=== PATIENT | female | born 1950 | race Caucasian/White ===

== ENCOUNTER 2017-10-17 12:20 | Inpatient (IN) | payer BC, MEDICARE ==
[~2017-10-17] VITALS: Ht 157.5 cm; Wt 68.0 kg
--- NOTE | 2017-10-17 12:38 | ED Neurological Problem ---
General Stated Complaint: POSS STROKE Source: patient, EMS Exam Limitations: no limitations History of Present Illness Date Seen by Provider: Oct 17, 2017 Time Seen by Provider: 12:16 Initial Comments Patient presents to ER by EMS with chief complaint that she had a syncopal episode in music class today and woke up confused so EMS was notified. Within got there she was responsive although she was confused word phrases she had the little racial droop and normal motor and sensory 4 extremities. Patient has a history of brain aneurysm 10 or 11 years ago. Patient says she remembers sitting in music class and she thought she fell asleep and woke up with a standing over her but she was still in her chair and she thought it was time to go home however informed her it was just lunch time. Patient does not have diabetes history of seizures or strokes. No history of heart attacks. No recent surgeries or procedures. No rectal bleeding. She is not on any blood thinners or aspirin. She does take some medications for blood pressure and was recently changed and she was also recently started on some Xanax for anxiety. Last known well time was 1140 today. Since the patient states she had her aneurysm coiled at [facility] around 2007. EMS reports blood sugar is 147. Friend who is present with the patient at the time of her last well-known time at work shows up and the patient was acting confused and was time to go home but never fell. They put her in a chair and she's Snapping her head backwards like she was going to fall asleep so he called 911. Patient now endorses having used a 1 mg Xanax this morning and she has not had anything to eat today. Allergies and Home Medications Allergies Coded Allergies: NKANo Known Allergies (Verified Allergy, Unknown, 10/17/17) Home Medications Alprazolam 0.5 Mg Tablet, 0.5 MG PO DAILY, (Reported) Hydrocodone/Acetaminophen 1 Each Tablet, 1 TAB PO Q6H PRN for PAIN-MODERATE, ( Reported) Losartan/Hydrochlorothiazide 1 Each Tablet, 1 TAB PO DAILY, (Reported) Patient Home Medication List Home Medication List Reviewed: Yes Constitutional: No chills, No diaphoresis Eyes: Denies Blindness, Denies Blurred Vision Ears, Nose, Mouth, Throat: denies ear pain, denies ear discharge Respiratory: No cough, No short of breath Cardiovascular: No chest pain, No edema Gastrointestinal: No abdominal pain, No constipation, No diarrhea, No nausea Genitourinary: No discharge, No dysuria Musculoskeletal: No back pain, No joint pain, other (right leg hurts) Skin: No pruritus, No rash Psychiatric/Neurological: Cognitive Dysfunction (slowed mentation), Denies Headache, Denies Numbness Past [id number] Hx Patient Social History Alcohol Use: Denies Use Recreational Drug Use: No Smoking Status: Current Everyday Smoker Type Used: Cigarettes Physical Exam Vital Signs Vital Signs - First Documented 10/17/17 12:20 Temp 98.0 Pulse 84 Resp 18 B/P (MAP) 135/82 (99) Pulse Ox 98 O2 Delivery Room Air Capillary Refill : General Appearance: WD/WN, no apparent distress (somnolent but alert and answers questions.) HEENT: PERRL/EOMI, normal ENT inspection, TMs normal, pharynx normal Neck: non-tender, supple, normal inspection Respiratory: chest non-tender, lungs clear, normal breath sounds, no respiratory distress, no accessory muscle use Cardiovascular: normal peripheral pulses, regular rate, rhythm, no edema Peripheral Pulses: 2+ Dorsalis Pedis (R), 2+ Left Dors-Pedis (L), 2+ Radial Pulses (R), 2+ Radial Pulses (L) Gastrointestinal: normal bowel sounds, non tender, soft Back: normal inspection, no vertebral tenderness Extremities: normal range of motion, non-tender, normal inspection, no pedal edema, no calf tenderness, normal capillary refill Neurologic/Psychiatric: alert, normal mood/affect, oriented x 3, other ( cranial nerves are normal except for mild left facial droop but her motor is intact she is able to move all of her muscles of facial movement.) Crainal Nerves: normal hearing, normal speech, PERRL Coordination/Gait: normal finger to nose Motor/Sensory: no sensory deficit, pronator drift (R) (upper extremity mild) Skin: normal color, warm/dry Lymphatic: no adenopathy Stroke Onset of Symptoms Date of Onset of Symptoms: Oct 17, 2017 Time of Symptom Onset: 11:40 Onset of Symptoms: Yes Symptoms onset unknown: No NIH Stroke Scale Assessment Level of Consciousness: 0=Alert (0), Level of Consciousness-Questions: 0= Answers both month/age (0), LOC Commands: 0=Performs both tasks (0), Gaze: Normal (0), Visual Loja: 0=No visual loss (0), Facial Movement (Facial Paresis ): 1=Minor paralysis (1), Motor Function-Arms Right: 1=Drift (1), Motor Function -Arms Left: 0=No drift (0), Motor Function-Legs Right: 0=No drift (0), Motor Function-Legs Left: 0=No drift (0), Limb Ataxia: 0=Absent (0), Sensory: 0=Normal :no loss (0), Best Language: 0=No aphasia (0), Dysarthria: 0=Normal (0), Extinction & Inattention: 0=No abnormality (0), Total: 2 Stroke Thrombolytic Exclusion Age 18 or Over: Yes Acute intenal hemorrhage: No History of CVA: No Uncontrolled Coagulation Defec: No Intracranial Hemorrhage: No Severe Hypertension: No GI or Bleed: No Subarachnoid Hemorrhage: No Intracranial Neoplasm/Aneurysm: No (Coiled 2007) Oral Anticoagulants: No Surgery or Trauma: No Puncture of Non-Compressible V: No Recent CPR: No Diabetic Hemorrhagic Retinopat: No Organ Biopsy: No Recent Obstetric Delivery: No Glucose: No (147) Significant Hepatic Dysfunctio: No NIH Stoke Scale >22: No Bacterial Endocarditis: No Pericarditis: No Improving Symptoms: No Platelets: No TPA Contraindication: No Progress/Results/Core Measures Results/Orders Lab Results Laboratory Tests Test 10/17/17 12:44 10/17/17 13:00 Range/Units White Blood Count 9.6 4.3-11.0 10^3/uL Red Blood Count 4.10 L 4.35-5.85 10^6/uL Hemoglobin 12.4 11.5-16.0 G/DL Hematocrit 37 35-52 % Mean Corpuscular Volume 90 80-99 FL Mean Corpuscular Hemoglobin 30 25-34 PG Mean Corpuscular Hemoglobin Concent 34 32-36 G/DL Red Cell Distribution Width 16.3 H 10.0-14.5 % Platelet Count 393 130-400 10^3/uL Mean Platelet Volume 10.5 H 7.4-10.4 FL Neutrophils (%) (Auto) 50 42-75 % Lymphocytes (%) (Auto) 36 12-44 % Monocytes (%) (Auto) 8 0-12 % Eosinophils (%) (Auto) 6 0-10 % Basophils (%) (Auto) 0 0-10 % Neutrophils # (Auto) 4.8 1.8-7.8 X 10^3 Lymphocytes # (Auto) 3.4 1.0-4.0 X 10^3 Monocytes # (Auto) 0.8 0.0-1.0 X 10^3 Eosinophils # (Auto) 0.6 H 0.0-0.3 10^3/uL Basophils # (Auto) 0.0 0.0-0.1 10^3/uL Prothrombin Time 12.5 12.2-14.7 SEC INR Comment 0.9 0.8-1.4 Activated Partial Thromboplast Time 42 H 24-35 SEC D-Dimer 0.44 0.00-0.49 UG/ML Sodium Level 141 135-145 MMOL/L Potassium Level 3.7 3.6-5.0 MMOL/L Chloride Level 107 98-107 MMOL/L Carbon Dioxide Level 27 21-32 MMOL/L Anion Gap 7 5-14 MMOL/L Blood Urea Nitrogen 24 H 7-18 MG/DL Creatinine 0.75 0.60-1.30 MG/DL Estimat Glomerular Filtration Rate > 60 BUN/Creatinine Ratio 32 Glucose Level 102 70-105 MG/DL Calcium Level 8.9 8.5-10.1 MG/DL Total Bilirubin 0.1 0.1-1.0 MG/DL Aspartate Amino Transf (AST/SGOT) 17 5-34 U/L Alanine Aminotransferase (ALT/SGPT) 13 0-55 U/L Alkaline Phosphatase 92 40-136 U/L Troponin I < 0.30 <0.30 NG/ML Total Protein 6.4 6.4-8.2 GM/DL Albumin 3.8 3.2-4.5 GM/DL Urine Color YELLOW Urine Clarity CLEAR Urine pH 6 5-9 Urine Specific Spar[place] 1.015 L 1.016-1.022 Urine Protein NEGATIVE NEGATIVE Urine Glucose (UA) NEGATIVE NEGATIVE Urine Ketones NEGATIVE NEGATIVE Urine Nitrite NEGATIVE NEGATIVE Urine Bilirubin NEGATIVE NEGATIVE Urine Urobilinogen NORMAL NORMAL MG/DL Urine Leukocyte Esterase NEGATIVE NEGATIVE Urine RBC (Auto) NEGATIVE NEGATIVE Urine RBC NONE /HPF Urine WBC NONE /HPF Urine Squamous Epithelial Cells 10-25 H /HPF Urine Crystals NONE /LPF Urine Bacteria TRACE /HPF Urine Casts NONE /LPF Urine Mucus SMALL H /LPF Urine Culture Indicated NO Urine Opiates Screen POSITIVE H NEGATIVE Urine Oxycodone Screen NEGATIVE NEGATIVE Urine Methadone Screen NEGATIVE NEGATIVE Urine Propoxyphene Screen NEGATIVE NEGATIVE Urine Barbiturates Screen NEGATIVE NEGATIVE Ur Tricyclic Antidepressants Screen NEGATIVE NEGATIVE Urine Phencyclidine Screen NEGATIVE NEGATIVE Urine Amphetamines Screen NEGATIVE NEGATIVE Urine Methamphetamines Screen NEGATIVE NEGATIVE Urine Benzodiazepines Screen POSITIVE H NEGATIVE Urine Cocaine Screen NEGATIVE NEGATIVE Urine Cannabinoids Screen NEGATIVE NEGATIVE My Orders Orders - RODRIGO,EARL J Cbc With Automated Diff (10/17/17 12:22) Protime With Inr (10/17/17 12:22) Partial Thromboplastin Time (10/17/17 12:22) Comprehensive Metabolic Panel (10/17/17 12:22) Fibrin Degradation Products (10/17/17 12:22) Troponin I (10/17/17:) Ua Culture If Indicated (10/17/17 12:22) Chest 1 View, Ap/Pa Only (10/17/17 12:22) Ekg Tracing (10/17/17 12:22) Accucheck Stat ONCE (10/17/17 12:22) Saline Lock/Iv-Start (10/17/17 12:22) Saline Lock/Iv-Start (10/17/17 12:22) Vital Signs Stroke Patient Q15M (10/17/17 12:22) Ct Head Wo-R/O Stroke (10/17/17 12:22) O2 (10/17/17 12:22) Monitor-Rhythm Ecg Trace Only (10/17/17 12:22) Dysphagia Screening Tool (10/17/17 12:22) Aspirin Tablet (Aspirin Tablet) (10/17/17 13:00) Drug Screen Stat (Urine) (10/17/17 12:55) Saline Lock/Iv-Start (10/17/17 12:58) Ns Iv 1000 Ml (Sodium Chloride 0.9%) (10/17/17 12:58) Medications Given in ED Current Medications Medications Dose Ordered Sig/Rosy Route Start Time Stop Time Status Last Admin Dose Admin Aspirin 325 mg ONCE ONCE PO 10/17/17 13:00 10/17/17 13:01 DC 10/17/17 13:12 325 MG Sodium Chloride 1,000 ml @ 0 mls/hr Q0M ONCE IV 10/17/17 12:58 10/17/17 12:59 DC 10/17/17 13:12 1,000 MLS/HR Vital Signs/I&O Vital Sign - Last 12Hours 10/17/17 12:20 Temp 98.0 Pulse 84 Resp 18 B/P (MAP) 135/82 (99) Pulse Ox 98 O2 Delivery Room Air Progress Note : Time: 12:52 Progress Note Patient is borderline somnolent although she easily arouses. Concern for maybe Xanax side effects. Her friend says that she came in to the music room confused taking it was 3:30 and acting like it was time to go home but it was only just about noon and then she took her back to the break room and sat her on the chair and says she just Having her head snapped back like she was falling asleep in the chair. Patient now endorses having taken a milligram of Xanax this morning without eating. Benzodiazepine side effect/intoxication seems to make more sense than her having a stroke but she'll still need stroke rule out she does have some risk factors. We'll start her on aspirin and atorvastatin get her set up to do some imaging and patient. ECG Initial ECG Impression Date: Oct 17, 2017 Initial ECG Impression Time: 12:43 Initial ECG Rate: 84 Initial ECG Rhythm: Normal Sinus Initial ECG Intervals: Normal Initial ECG Impression: Normal Initial ECG Comparisson: No Previous ECG Available Comment No T-wave elevation or depression. Diagnostic Imaging Diagonstic Imaging: CT Plain Films/CT/US/NM/MRI: head Comments VIA [facility]. [place], [place] NAME: JUAN LUIS GRANADO MED REC#: [id number] PT STATUS: REG ER : 1950 PHYSICIAN: EARL WALLACE MD ADMIT DATE: 10/17/17/ER Draft Date of Exam:10/17/17 CT HEAD WO-R/O STROKE Indication: Syncopal episode, confusion with left-sided facial droop. The patient has a history of intracranial aneurysm. Comparison: I have no previous for comparison. Findings: An embolic coil mass at the midline [place] is present. There is no intracranial hemorrhage. There is a very mild degree of ventriculomegaly of uncertain acuity. Overall cortical volume appeared unremarkable. The basilar cisterns are patent and there is no sulcal effacement. No loss of the cortical fletcher-white matter differentiations and there were no findings of focal or generalized cerebral edema. There were no findings suggestive of an elevation to the intracranial pressures. No abnormal extra-axial fluid collection. Impression: Post interventional changes with no hemorrhage. No focal or acute edema apparent. Borderline lateral ventriculomegaly of uncertain acuity. Otherwise negative. Dictated on workstation # [id number] Dict: 10/17/17 1235 Trans: 10/17/17 1240 CVB [id number] Interpreted by: JUANITA CHAVEZ Electronically signed by: Reviewed: Reviewed by Me Diagonstic Imaging: Xray Plain Films/CT/US/NM/MRI: chest Comments No acute cardiopulmonary processes noted. Reviewed: Reviewed by Me Consults Consults : Consults Notes Mehreen; [facility] Neurology: Discussed case imaging and clinical exam and an NIH score of 24 right arm drift and left facial droop. He agrees that she should not be TPA but he does recommend an inpatient workup, aspirin 81 mg and if we get a CTA and MRI today would be wonderful or tomorrow. Departure Communication (Admissions) Time/Spoke to Admitting Phy: 13:[address] Palacios; Discussed the case lab imaging and findings of benzos and opiates in the urine drug screen and possibility of this being a drug adverse effect versus stroke/TIA and syncopal workup. She still agrees with doing the MRI and CT angiography head and neck and she would like an echocardiogram and asked the histotechnician Dr. Mcdaniel to come on Board. Time/Spoke to Consulting Phy: 13:35 Communication/Consulting Dr. Mcdaniel; discussed case lab imaging findings and request for an echocardiogram for possible CT versus CVA versus TIA versus adverse drug event Impression Impression: Primary Impression: CVA (cerebrovascular accident) Qualified Codes: I63.9 - Cerebral infarction, unspecified Additional Impressions: Benzodiazepine causing adverse effect in therapeutic use Qualified Codes: T42.4X5A - Adverse effect of benzodiazepines, initial encounter Syncope Qualified Codes: R55 - Syncope and collapse Encephalopathy acute Adv eff opiates Disposition: ADMITTED INPATIENT Condition: Stable Admissions Decision to Admit Reason: Admit from ER (General) Decision to Admit/Date: Oct 17, 2017 Time/Decision to Admit Time: 13:13 Departure-Patient Inst. Referrals: MALA KABA MD (PCP/Family) Primary Care Physician Copy Copies To 1: MALA KABA MD, TITUS J Oct 17, 2017 12:38
--- NOTE | 2017-10-17 12:41 | Diagnostic Imaging Report ---
Indication: Syncopal episode, confusion with left-sided facial droop. The patient has a history of intracranial aneurysm. Comparison: I have no previous for comparison. Findings: An embolic coil mass at the midline [place] is present. There is no intracranial hemorrhage. There is a very mild degree of ventriculomegaly of uncertain acuity. Overall cortical volume appeared unremarkable. The basilar cisterns are patent and there is no sulcal effacement. No loss of the cortical fletcher-white matter differentiations and there were no findings of focal or generalized cerebral edema. There were no findings suggestive of an elevation to the intracranial pressures. No abnormal extra-axial fluid collection. Impression: Post interventional changes with no hemorrhage. No focal or acute edema apparent. Borderline lateral ventriculomegaly of uncertain acuity. Otherwise negative. Dictated by: Dictated on workstation # [id number]
[2017-10-17 12:51] LABS: BASOPHILS % (AUTO) 0 % (0-10); EOSINOPHILS # (AUTO) 0.6 10^3/uL (0.0-0.3); EOSINOPHILS % (AUTO) 6 % (0-10); HEMATOCRIT 37 % (35-52); HEMOGLOBIN 12.4 G/DL (11.5-16.0); LYMPHOCYTES # (AUTO) 3.4 X 10^3 (1.0-4.0); LYMPHOCYTES % (AUTO) 36 % (12-44); MEAN CORPUSCULAR HEMOGLOBIN 30 PG (25-34); MEAN CORPUSCULAR HGB CONC 34 G/DL (32-36); MEAN CORPUSCULAR VOLUME 90 FL (80-99); MEAN PLATELET VOLUME 10.5 FL (7.4-10.4); MONOCYTES # (AUTO) 0.8 X 10^3 (0.0-1.0); MONOCYTES % (AUTO) 8 % (0-12); NEUTROPHILS # (AUTO) 4.8 X 10^3 (1.8-7.8); NEUTROPHILS % (AUTO) 50 % (42-75); PLATELET COUNT 393 10^3/uL (130-400); RED CELL DISTRIBUTION WIDTH 16.3 % (10.0-14.5); WHITE BLOOD COUNT 9.6 10^3/uL (4.3-11.0)
[2017-10-17] MEDS ORDERED: NS IV 1000 ML 1,000 ML IV ONE (12:58)
[2017-10-17] MEDS ORDERED: ASPIRIN 325 MG (5 GR) TABLET PO ONE (13:00)
[2017-10-17 13:03] LABS: INR 0.9 (0.8-1.4); PROTHROMBIN TIME PATIENT 12.5 SEC (12.2-14.7)
[2017-10-17 13:06] LABS: FIBRIN DEGRADATION PRODUCTS 0.44 UG/ML (0.00-0.49)
[2017-10-17 13:11] LABS: ALANINE AMINOTRANSFERASE 13 U/L (0-55); ALBUMIN 3.8 GM/DL (3.2-4.5); ALKALINE PHOSPHATASE 92 U/L (40-136); BILIRUBIN,TOTAL 0.1 MG/DL (0.1-1.0); BUN/CREATININE RATIO 32; CALCIUM 8.9 MG/DL (8.5-10.1); CARBON DIOXIDE 27 MMOL/L (21-32); CHLORIDE 107 MMOL/L (98-107); CREATININE SERUM 0.75 MG/DL (0.60-1.30); GFR ESTIMATED > 60; GLUCOSE 102 MG/DL (70-105); POTASSIUM 3.7 MMOL/L (3.6-5.0); SODIUM 141 MMOL/L (135-145); TOTAL PROTEIN 6.4 GM/DL (6.4-8.2)
[2017-10-17 13:12] LABS: BILIRUBIN,URINE NEGATIVE (NEGATIVE); CLARITY,URINE CLEAR; COLOR,URINE YELLOW; GLUCOSE, URINE (UA) NEGATIVE (NEGATIVE); KETONES,URINE NEGATIVE (NEGATIVE); LEUKOCYTE ESTERASE ,URINE NEGATIVE (NEGATIVE); NITRITE,URINE NEGATIVE (NEGATIVE); PH,URINE 6 (5-9); PROTEIN,URINE NEGATIVE (NEGATIVE); UROBILINOGEN,URINE NORMAL (NORMAL)
[2017-10-17] MEDS ORDERED: LOSA1TAB26 PO (13:17)
[2017-10-17] MEDS ORDERED: ALPR0.5T7 PO (13:17)
[2017-10-17 13:22] LABS: BACTERIA,URINE TRACE /HPF
[2017-10-17 13:25] LABS: AMPHETAMINE SCREEN, URINE NEGATIVE (NEGATIVE); BARBITURATE SCREEN URINE NEGATIVE (NEGATIVE); BENZODIAZEPINES SCREEN URINE POSITIVE (NEGATIVE); CANNABINOID SCREEN, URINE NEGATIVE (NEGATIVE); COCAINE SCREEN URINE NEGATIVE (NEGATIVE); METHADONE STAT NEGATIVE (NEGATIVE); METHAMPHETAMINE SCREEN URINE S NEGATIVE (NEGATIVE); OPIATE SCREEN URINE POSITIVE (NEGATIVE); OXYCODONE STAT NEGATIVE (NEGATIVE); PROPOXYPHENE STAT NEGATIVE (NEGATIVE); TRICYCLIC ANTIDEPRESSANTS SCRE NEGATIVE (NEGATIVE)
[2017-10-17] MEDS ORDERED: HYDR-3820 PO (13:28)
--- NOTE | 2017-10-17 13:55 | Diagnostic Imaging Report ---
CLINICAL INDICATION: Patient with possible stroke. EXAM: Portable chest x-ray upright view. COMPARISONS: Chest x-ray dated 09/27/2008. FINDINGS: Lungs/pleura: Lungs are clear. There is no pneumothorax. There is no pleural effusion. Mediastinum: Unremarkable. Pulmonary vasculature: Unremarkable. Heart: Unremarkable. Bones/extrathoracic soft tissue: There are degenerative spurs involving the thoracic spine. IMPRESSION: There is no radiographic evidence of acute cardiopulmonary process. Dictated by: Dictated on workstation # [id number]
[2017-10-17] MEDS ORDERED: CATHETER FLUSH 10 ML SYR IV PRN ×2 (14:30→14:45)
[2017-10-17] MEDS ORDERED: ONDANSETRON 4 MG/2 ML (SDV) Z0FRAN IV PRN (14:30)
[2017-10-17] MEDS ORDERED: ACETAMINOPHEN 500 MG TAB (TYLENOL) PO PRN (14:30)
[2017-10-17 14:39] VITALS: BP 139/74
[2017-10-17] MEDS ORDERED: NS 250 ML (IVPB) BAG IV ONE (14:45)
[2017-10-17] MEDS ORDERED: IOHEXOL 350 MG/ML 100 ML (OMNIPAQUE 350) VIAL IV ONE (14:45)
[2017-10-17] MEDS ORDERED: RECEIVED CONTRAST (Hold Metformin) IV SCH (15:00)
[2017-10-17] MEDS ORDERED: INFLUENZA TRIvalent 2017-2018 0.5 ML/45 MCG SYR IM ONE (15:45)
[2017-10-17 16:03] VITALS: BP 156/91
--- NOTE | 2017-10-17 16:28 | Diagnostic Imaging Report ---
PROCEDURE: CT angiography of the head and CT angiography of the neck with and without contrast. TECHNIQUE: Contiguous noncontrast images were obtained from the skull base through the vertex. After intravenous contrast administration, helical CT angiography of the neck was performed. Source data was reformatted into multiple MIP projections. Delayed post contrast acquisition was also obtained. INDICATION: Left-sided facial droop, confusion. FINDINGS: The CT head exam performed earlier today failed to show any sign of an acute intracranial abnormality. On this exam, the images of the intracranial circulation again show the aneurysm clip in the region of the anterior communicating artery. There is no other aneurysm identified. There is no defect within the intracranial arterial circulation to suggest a thrombus either. There is no abnormal enhancement on the post contrast series. Images through the neck do show that there is atherosclerotic plaque involving both carotid bifurcations. There is no hemodynamically significant stenosis identified, however. Both vertebral arteries were identified. The left vertebral artery is dominant. There is no mass or adenopathy involving the neck. The lung apices are clear. There are mild emphysematous changes involving both lung apices. The thyroid gland is not enlarged. The bone windows show no sign of a fracture or of a destructive lesion. There is degenerative disc and bony disease at C5-C6 and C6-C7. IMPRESSION: 1. There is no evidence for an aneurysm of the [place]. There is no defect within the intracranial arterial circulation to suggest an acute abnormality either. 2. If clinical concern regarding an acute intracranial abnormality persists, then MRI would be recommended for further study. 3. There is atherosclerotic disease involving both carotid bifurcations but there is no evidence for hemodynamically significant stenosis of the common or internal carotid arteries. 4. There are mild emphysematous changes involving the lung apices. 5. There is degenerative disc and bony disease at C5-C6 and C6-C7. 6. These results were discussed with Dr. Escobedo in the ER. Dictated by: Dictated on workstation # [id number]
--- NOTE | 2017-10-17 17:56 | Consultation-Cardiology ---
HPI-Cardiology Cardiology Consultation Date of Consultation 10/17/17 Date of Admission Time Seen by Provider: 17:52 Indication: Syncope HPI 66 years old lady with history of intracranial aneurysm, hypertension. Was in her usual state of health, was at her work as a teacher aid in music class, patient reported that she fell asleep, it appear that she had a syncopal episode she became unresponsive for short period of time, was disoriented afterward and was not sure of the time. There was questionable slight facial droop. She was brought to the emergency room, upper my evaluation she was laying down in bed comfortably, asking to go home. Reported similar episode in the past about 7 years ago before having her aneurysm surgery. No other episodes were reported. She denied any chest pain, no palpitation. No fever or chills. She has been feeling cold while she was in her room. Home Medications & Allergies Allergies: Coded Allergies: NKANo Known Allergies (Verified Allergy, Unknown, 10/17/17) Home Medication List Reviewed: Yes MEI-Sefpxb-Dyblrf Hx Patient Social History Marital Status: Alcohol Use: Denies Use Recreational Drug Use: No Smoking Status: Current Everyday Smoker Type Used: Cigarettes Recent Foreign Travel: No Recent Infectious Disease Expo: No Recent Hopitalizations: No Physical Abuse Screen: No Sexual Abuse: No Past Medical History Past medical history as discussed below Family Medical History Family Medical Hx Noncontributory to her current condition Family History: Constitutional: see HPI, chills EENTM: see HPI, no symptoms reported Respiratory: see HPI, No cough, No dyspnea on exertion, No hemoptysis, No orthopnea, No phlegm, No short of breath, No stridor, No wheezing, No other Cardiovascular: see HPI, No chest pain, No edema, No Hx of Intervention, No palpitations, syncope, No vascular heart diseas, No other Gastrointestinal: no symptoms reported, see HPI Genitourinary: no symptoms reported, see HPI Musculoskeletal: no symptoms reported, see HPI Skin: no symptoms reported, see HPI Psychiatric/Neurological: No Symptoms Reported, See HPI Reviewed Test Results Reviewed Test Results Lab Laboratory Tests Test 10/17/17 12:44 10/17/17 13:00 Range/Units White Blood Count 9.6 4.3-11.0 10^3/uL Red Blood Count 4.10 L 4.35-5.85 10^6/uL Hemoglobin 12.4 11.5-16.0 G/DL Hematocrit 37 35-52 % Mean Corpuscular Volume 90 80-99 FL Mean Corpuscular Hemoglobin 30 25-34 PG Mean Corpuscular Hemoglobin Concent 34 32-36 G/DL Red Cell Distribution Width 16.3 H 10.0-14.5 % Platelet Count 393 130-400 10^3/uL Mean Platelet Volume 10.5 H 7.4-10.4 FL Neutrophils (%) (Auto) 50 42-75 % Lymphocytes (%) (Auto) 36 12-44 % Monocytes (%) (Auto) 8 0-12 % Eosinophils (%) (Auto) 6 0-10 % Basophils (%) (Auto) 0 0-10 % Neutrophils # (Auto) 4.8 1.8-7.8 X 10^3 Lymphocytes # (Auto) 3.4 1.0-4.0 X 10^3 Monocytes # (Auto) 0.8 0.0-1.0 X 10^3 Eosinophils # (Auto) 0.6 H 0.0-0.3 10^3/uL Basophils # (Auto) 0.0 0.0-0.1 10^3/uL Prothrombin Time 12.5 12.2-14.7 SEC INR Comment 0.9 0.8-1.4 Activated Partial Thromboplast Time 42 H 24-35 SEC D-Dimer 0.44 0.00-0.49 UG/ML Sodium Level 141 135-145 MMOL/L Potassium Level 3.7 3.6-5.0 MMOL/L Chloride Level 107 98-107 MMOL/L Carbon Dioxide Level 27 21-32 MMOL/L Anion Gap 7 5-14 MMOL/L Blood Urea Nitrogen 24 H 7-18 MG/DL Creatinine 0.75 0.60-1.30 MG/DL Estimat Glomerular Filtration Rate > 60 BUN/Creatinine Ratio 32 Glucose Level 102 70-105 MG/DL Calcium Level 8.9 8.5-10.1 MG/DL Total Bilirubin 0.1 0.1-1.0 MG/DL Aspartate Amino Transf (AST/SGOT) 17 5-34 U/L Alanine Aminotransferase (ALT/SGPT) 13 0-55 U/L Alkaline Phosphatase 92 40-136 U/L Troponin I < 0.30 <0.30 NG/ML Total Protein 6.4 6.4-8.2 GM/DL Albumin 3.8 3.2-4.5 GM/DL Urine Color YELLOW Urine Clarity CLEAR Urine pH 6 5-9 Urine Specific [place] 1.015 L 1.016-1.022 Urine Protein NEGATIVE NEGATIVE Urine Glucose (UA) NEGATIVE NEGATIVE Urine Ketones NEGATIVE NEGATIVE Urine Nitrite NEGATIVE NEGATIVE Urine Bilirubin NEGATIVE NEGATIVE Urine Urobilinogen NORMAL NORMAL MG/DL Urine Leukocyte Esterase NEGATIVE NEGATIVE Urine RBC (Auto) NEGATIVE NEGATIVE Urine RBC NONE /HPF Urine WBC NONE /HPF Urine Squamous Epithelial Cells 10-25 H /HPF Urine Crystals NONE /LPF Urine Bacteria TRACE /HPF Urine Casts NONE /LPF Urine Mucus SMALL H /LPF Urine Culture Indicated NO Urine Opiates Screen POSITIVE H NEGATIVE Urine Oxycodone Screen NEGATIVE NEGATIVE Urine Methadone Screen NEGATIVE NEGATIVE Urine Propoxyphene Screen NEGATIVE NEGATIVE Urine Barbiturates Screen NEGATIVE NEGATIVE Ur Tricyclic Antidepressants Screen NEGATIVE NEGATIVE Urine Phencyclidine Screen NEGATIVE NEGATIVE Urine Amphetamines Screen NEGATIVE NEGATIVE Urine Methamphetamines Screen NEGATIVE NEGATIVE Urine Benzodiazepines Screen POSITIVE H NEGATIVE Urine Cocaine Screen NEGATIVE NEGATIVE Urine Cannabinoids Screen NEGATIVE NEGATIVE Physical Exam Vital Signs Vital Signs - First Documented 10/17/17 12:20 Temp 98.0 Pulse 84 Resp 18 B/P (MAP) 135/82 (99) Pulse Ox 98 O2 Delivery Room Air Capillary Refill : Less Than 3 SecondsLess Than 3 Seconds General Appearance: No Apparent Distress, WD/WN Eyes: Bilateral Eye Normal Inspection, Bilateral Eye PERRL, Bilateral Eye EOMI HEENT: PERRL/EOMI, TMs Normal, Normal ENT Inspection, Pharynx Normal Neck: Full Range of Motion, Normal Inspection, Non Tender, Supple, Carotid Bruit Respiratory: Chest Non Tender, Lungs Clear, Normal Breath Sounds, No Accessory Muscle Use, No Respiratory Distress Cardiovascular: Regular Rate, Rhythm, No Edema, No Gallop, No JVD, No Murmur, Normal Peripheral Pulses Gastrointestinal: Normal Bowel Sounds, No Organomegaly, No Pulsatile Mass, Non Tender, Soft Back: Normal Inspection, No CVA Tenderness, No Vertebral Tenderness Extremity: Normal Capillary Refill, Normal Inspection, Normal Range of Motion, Non Tender, No Calf Tenderness, No Pedal Edema Neurologic/Psychiatric: Alert, Oriented x3, No Motor/Sensory Deficits, Normal Mood/Affect Skin: Normal Color, Warm/Dry Lymphatic: No Adenopathy A/P-Cardiology Admission Diagnosis Syncope Intracranial aneurysm Hypertension Anxiety Assessment/Plan Syncope, questionable secondary to her underlying intracranial aneurysm versus side effect of her medication from taking Xanax and hydrocodone. Currently feeling better. Continue to monitor today, I will review 2-D echocardiogram and monitor blood pressure and electrolytes. History of intracranial aneurysm, history of coil procedure done about 7 years ago. Hypertension, maintained on losartan/HCTZ. I restarted losartan, hold hydrochlorothiazide for now and monitor blood pressure Anxiety, maintained on Xanax Generalized body ache and headache. Clinical Quality Measures DVT/VTE Risk/Contraindication: Risk Factor Score Per Nursin RFS Level Per Nursing on Admit: 3=High Stroke: Date of last known well: Oct 17, 2017 Time of last known well: 11:40 Symptoms onset unknown: No LIANG LOWERY MD Oct 17, 2017 17:55
[2017-10-17 19:31] VITALS: BP 113/76
[2017-10-17] MEDS: CATHETER FLUSH 10 ML SYR IV SCH (20:15)
[2017-10-17] MEDS ORDERED: ATORVASTATIN 40 MG (LIPITOR) TABLET PO SCH (21:00)
[2017-10-18] VITALS: BP 128/61
[2017-10-18 04:00] VITALS: BP 136/71
[2017-10-18] MEDS: CATHETER FLUSH 10 ML SYR IV SCH (05:53)
[2017-10-18 08:00] VITALS: BP 125/64
[2017-10-18] MEDS ORDERED: ASPIRIN 81 MG CHEW (CHILDREN'S ASA) PO SCH (09:00)
[2017-10-18] MEDS ORDERED: LOSARTAN 25 MG (COZAAR) TAB PO SCH (09:00)
--- NOTE | 2017-10-18 09:00 | Cardiology Progress Note ---
Subjective Date Seen by Provider: Oct 18, 2017 Time Seen by Provider: 08:59 Subjective/Events-last exam Patient is laying down in bed, feeling better, asking to go home, no further dizziness or lightheadedness was reported Review of Systems General: No Chills, No Night Sweats, No Fatigue, No Malaise, No Appetite, No Other HEENT: No Head Aches, No Visual Changes, No Eye Pain, No Ear Pain, No Dysphasia , No Sinus Congestion, No Post Nasal Drip, No Sore Throat, No Other Pulmonary: No Dyspnea, No Cough, No Pleuritic Chest Pain, No Other Cardiovascular: No: Chest Pain, Palpitations, Orthopnea, Paroxysmal Noc. Dyspnea, Edema, Lt Headedness, Other Objective-Cardiology Exam Last Set of Vital Signs Vital Signs 10/18/17 08:00 Temp 97.9 Pulse 96 Resp 20 B/P (MAP) 125/64 (84) Pulse Ox 97 O2 Delivery Room Air Capillary Refill : Less Than 3 SecondsLess Than 3 Seconds I&O Intake and Output 10/18/17 00:00 Intake Total 220 ml Balance 220 ml Intake Oral 220 ml # Voids 1 Daily Weight Change No General: Alert, Oriented X3, Cooperative HEENT: Atraumatic, PERRLA Neck: Supple, No JVD, No Thyromegaly Lungs: Clear to Auscultation, Normal Air Movement Heart: Regular Rate, Normal S1, Normal S2, No Murmurs Abdomen: Normal Bowel Sounds, Soft, No Tenderness, No Hepatosplenomegaly, No Masses Extremities: No Clubbing, No Cyanosis, No Edema, Normal Pulses, No Tenderness/ Swelling Skin: No Rashes, No Breakdown, No Significant Lesion Neuro: Normal Gait, Normal Speech, Strength at 5/5 X4 Ext, Normal Tone, Sensation Intact Psych/Mental Status: Mental Status NL, Mood NL Results Lab Laboratory Tests 10/17/17 12:44 A/P-Cardiology Admission Diagnosis Syncope Intracranial aneurysm Hypertension Anxiety Assessment/Plan Syncope, questionable secondary to her underlying intracranial aneurysm versus side effect of her medication from taking Xanax and hydrocodone, feeling better and asking to go home, cardiac workup was negative. Mild to moderate aortic regurgitation, mild mitral regurgitation with normal left ventricular function. Noted by echocardiogram done yesterday. Continue to monitor as an outpatient. No changes are recommended History of intracranial aneurysm, history of coil procedure done about 7 years ago. Hypertension, maintained on losartan/HCTZ. I restarted losartan, I recommend avoiding diuretics at this point and follow-up as an outpatient Anxiety, maintained on Xanax Generalized body ache and headache. Clinical Quality Measures DVT/VTE Risk/Contraindication: Risk Factor Score Per Nursin RFS Level Per Nursing on Admit: 3=High Stroke: Date of last known well: Oct 17, 2017 Time of last known well: 11:40 Symptoms onset unknown: No LIANG LOWERY MD Oct 18, 2017 09:00
--- NOTE | 2017-10-18 09:46 | Physical Therapy Evaluation ---
PT Evaluation-General Medical Diagnosis Admission Date Oct 17, 2017 at 13:00 Medical Diagnosis: CVA vs TIA/syncope Onset Date: Oct 17, 2017 Therapy Diagnosis Therapy Diagnosis: debility Height/Weight Height (Feet): 5 Height (Inches): 2.00 Weight (Pounds): 150 Weight (Ounces): 0.0 Precautions Precautions/Isolations: Fall Prevention, Standard Precautions Weight Bear Status Right Lower Extremity: Right Full Weight Bearing Left Lower Extremity: Left Full Weight Bearing Referral Physician: Philip Reason for Referral: Evaluation/Treatment Medical History Pertinent Medical History: Smoking Additional Medical History brain aneurysm Current History ED secondary to syncopal episode at work Reviewed History: Yes Social History Home: Single Level Current Living Status: Spouse Prior/Core FIM Prior Level of Function Functional Humphreys Measure 0=Not Assessed/NA 4=Minimal Assistance 1=Total Assistance 5=Supervision or Setup 2=Maximal Assistance 6=Modified Humphreys 3=Moderate Assistance 7=Complete Humphreys Bed Mobility: 7 Transfers (B,C,W/C) (FIM): 7 Gait: 7 Locomotion: 7 PT Evaluation-Current Subjective Patient agrees to PT. She reports, "I'm back to normal." Pain Numeric Pain Scale: 0-No Pain Location: No Pain Reported Objective Patient Orientation: Normal For Age Problem Solving: Good ROM/Strength ROM Lower Extremities bilateral LE WNL Strength Lower Extremities bilateral LE WNL Integumentary/Posture Integumentary refer to nursing notes Bowel Incontinence: No Bladder Incontinence: No Posture erect Neuromuscular (Tone, Coordination, Reflexes) grossly intact Sensory Vision: Functional Hearing: Functional Sensation Right Lower Extremit: Intact Sensation Left Lower Extremity: Intact Transfers Functional Humphreys Measure 0=Not Assessed/NA 4=Minimal Assistance 1=Total Assistance 5=Supervision or Setup 2=Maximal Assistance 6=Modified Humphreys 3=Moderate Assistance 7=Complete Humphreys Transfers (B, C, W/C) (FIM): 7 Scootin Rollin Supine to/from Sit: 7 Sit to/from Stand: 7 Gait Mode of Locomotion: Walk Anticipated Mode of Locomotion: Walk Gait (FIM): 7 Distance (FIM): 3=150 ft Distance: 400' Gait Level of Assist: 7 Gait Assistive Device: None Comments/Gait Description safe and functional Balance Sitting Static: Normal Sitting Dynamic: Normal Standing Static: Normal Standing Dynamic: Normal Assessment/Needs 66 y.o. female, is currently at [facility] with all gross motor skills safely and does not require skilled PT intervention at this time. Thank you for this referral. Rehab Potential: Good PT Plan Treatment/Plan Treatment Plan: Discontinue PT, goals met Treatment Plan: Other Treatment Duration: Oct 18, 2017 Frequency: 1 time per week Estimated Hrs Per Day: .25 hour per day Patient and/or Family Agrees t: Yes Discharge Recommendations Therapy D/C Recommendations: Home w/ Family Support, Home Independently Time/GCodes Time In: 805 Time Out: 817 Total Billed Treatment Time: 12 Total Billed Treatment 1 visit EVLowC 12 min LILLIAN PATRICIA PT Oct 18, 2017 09:46
[2017-10-18] MEDS ORDERED: LOSA25TA21 PO (10:52)
--- NOTE | 2017-10-18 10:58 | Short Stay Summary-Hospitalist ---
History of Present Illness HPI/Chief Complaint CC: Syncopal episode HPI: This is a 66 [address] Zhu who presented to ER via EMS following possible syncopal episode while at work. 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 Pt was informed that she can take both, but to be careful; she may have to pick one or the other. Pt's states he wants her to take the Xanax at night Sleep apnea testing discussed and I informed the pt that Dr. Zhu should be able to do this Pt confirms smoking, but denies ETOH Coil placement discussed and was in 2006 in [place]. denies problems after that surgery DC discussed for today, and I informed the pt that no med changes are needed as of now Pt confirms [facility] as pharmacy Pt will call today to make follow up appointment with Dr. Zhu Scribed by Shwetha Coon under direct supervision of Dr. Malka King. Source: patient, family Exam Limitations: no limitations Date Seen 10/18/17 Time Seen by Provider: 10:30 Attending Physician Malka King DO PCP Freddie Zhu MD Referring Physician Date of Admission Oct 17, 2017 at 13:00 Home Medications & Allergies Home Medications Reviewed patient Home Medication Reconciliation performed by pharmacy medication reconciliations cnc maintenance technician and/or nursing. Patients Allergies have been reviewed. 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) Alcohol Use: Denies Use Recreational Drug Use: No Smoking Status: Current Everyday Smoker Type Used: Cigarettes Physical Abuse Screen: No Sexual Abuse: No Recent Foreign Travel: No Contact w/other who traveled: No Recent Hopitalizations: No Recent Infectious Disease Expo: No Seasonal Allergies Seasonal Allergies: No Past Medical History Surgeries: Tubal Ligation Cardiac: Hypertension Neurological: Stroke Musculoskeletal: Arthritis Psychosocial: Anxiety History of Blood Disorders: No Adverse Reaction to Blood [place]j: No Family History Hypertension Review of Systems Constitutional: see HPI, dizziness EENTM: no symptoms reported Respiratory: no symptoms reported Cardiovascular: no symptoms reported Gastrointestinal: no symptoms reported Genitourinary: no symptoms reported Musculoskeletal: no symptoms reported Skin: no symptoms reported Psychiatric/Neurological: See HPI All Other Systems Reviewed Negative Unless Noted: Yes Physical Exam Physical Exam Vital Signs Vital Signs - First Documented 10/17/17 12:20 Temp 98.0 Pulse 84 Resp 18 B/P (MAP) 135/82 (99) Pulse Ox 98 O2 Delivery Room Air Capillary Refill : Less Than 3 SecondsLess Than 3 Seconds General Appearance: No Apparent Distress, WD/WN, Chronically ill Eyes: Bilateral Eye Normal Inspection, Bilateral Eye PERRL HEENT: PERRL/EOMI, Normal ENT Inspection, Pharynx Normal Neck: Full Range of Motion, Normal Inspection, Non Tender, Supple, Carotid Bruit Respiratory: Chest Non Tender, Lungs Clear (except decreased in bases), Normal Breath Sounds, No Accessory Muscle Use, No Respiratory Distress Cardiovascular: Regular Rate, Rhythm, No Edema, No Gallop, No JVD, No Murmur, Normal Peripheral Pulses Gastrointestinal: Normal Bowel Sounds, No Organomegaly, No Pulsatile Mass, Non Tender, Soft Back: Normal Inspection, No CVA Tenderness, No Vertebral Tenderness Extremity: Normal Capillary Refill, Normal Inspection, Normal Range of Motion, Non Tender, No Calf Tenderness, No Pedal Edema Neurologic/Psychiatric: Alert, Oriented x3, No Motor/Sensory Deficits, Normal Mood/Affect Skin: Normal Color, Warm/Dry Lymphatic: No Adenopathy Results Results/Procedures Labs Laboratory Tests 10/17/17 12:44 Patient resulted labs reviewed. Short Stay Diagnosis Discharge Diagnosis-Short Stay Admission Diagnosis Syncope HTN Smoker Final Discharge Diagnosis Syncope due to Xanax new medicine and Hydrocodone usage h/o brain aneurysm with coil placed in 2006 in HTN Smoker Conclusion Plan Plan: [facility] home Follow up with Dr. Marko [place] HCTZ in Losartan combination in case overdiuresis was factor in syncope Stop smoking Hold Xanax until see Dr Zhu Minimize Hydrocodone use Clinical Quality Measures DVT/VTE Risk/Contraindication: Risk Factor Score Per Nursin RFS Level Per Nursing on Admit: 3=High Stroke: Date of last known well: Oct 17, 2017 Time of last known well: 11:40 Symptoms onset unknown: No MALKA KIGN DO Oct 18, 2017 10:58
[2017-10-18] MEDS ORDERED: HYDROcodone/APAP 10 MG/325 MG (LORTAB) TAB PO PRN (11:00)
--- NOTE | 2017-10-18 11:18 | Speech Therapy Progress Note ---
Therapy Progress Note Dysphagia evaluation received and chart reviewed. Per chart review, the patient successfully passed the RN Swallowing Screen on 10/17/2017. Due to this, the clinician contacted the patient's RN for additional information and clarification. The patient's RN stated the patient is doing well and there is no need for a dysphagia evaluation. The clinician will cancel the evaluation consult at this time. The clinician requested re-consult if difficulties arise in the future. Thank you. LORNE BANEGAS Oct 18, 2017 11:18
[2017-10-18 11:50] VITALS: BP 125/64
== END 2017-10-18 11:50 | disposition home or self-care (01) | DRG 312 ==
LOC: EDUNIT# 12:20 → ER 12:21 → 4TH 13:00
PROVIDERS: ADMIT Internal Medicine; ATTEND Internal Medicine
DX: R55 Syncope and collapse (principal); T42.4X5A Adverse effect of benzodiazepines, initial encounter; T40.2X5A Adverse effect of other opioids, initial encounter; I10 Essential (primary) hypertension; F17.210 Nicotine dependence, cigarettes, uncomplicated; F41.9 Anxiety disorder, unspecified
CPT/HCPCS: 36415; 70450; 70496; 70498; 71045; 80053; 80306; 81000; 84484; 85025; 85379; 85610; 85730; 93005; 93041; 93306

== ENCOUNTER → 2018-02-10 | Outpatient (CLI) | payer BC, MEDICARE ==
[~2018-02-10] MED LIST: ALPR0.5T7 PO; HYDR-3820 PO; LOSA1TAB26 PO; LOSA25TA21 PO
--- NOTE | 2018-02-10 13:03 | Diagnostic Imaging Report ---
INDICATION: Chronic hip pain. COMPARISON: None. FINDINGS: Two views of the right hip are obtained. No acute fracture, malalignment or osseous destructive process is seen. Hip joint spaces preserved and femoral head appear smooth and round. There is a 2 cm osseous density superior to the greater tuberosity which may represent some heterotopic ossification or calcification along the ligamentous attachments or related to bursitis. IMPRESSION: Possible findings of calcific tendinitis or bursitis about the right greater tuberosity. No acute osseous abnormality is suspected. Dictated by: Dictated on workstation # [id number]
== END ==
LOC: RAD 10:00
PROVIDERS: ATTEND Nurse Practitioner Family
DX: G89.29 Other chronic pain (principal); M25.551 Pain in right hip
CPT/HCPCS: 73502

== ENCOUNTER → 2021-01-12 | Outpatient (CLI) | payer MEDICARE, OTHER ==
[~2021-01-12] MED LIST changes: +ACHYD1T PO; -HYDR-3820 PO; -LOSA25TA21 PO; +LOSA25TA41 PO
--- NOTE | 2021-01-12 14:19 | Diagnostic Imaging Report ---
INDICATION: Knee pain. COMPARISON: None. FINDINGS: Three views of the left knee joint demonstrate no acute fracture or dislocation. No focal osseous lesions are seen. No significant joint effusion is seen. The surrounding soft tissue structures are unremarkable. There are no radiopaque foreign bodies. IMPRESSION: 1. No acute fractures or dislocations of the left knee joint. Dictated by: Dictated on workstation # [id number]
== END ==
LOC: RAD 13:28
DX: M25.562 Pain in left knee (principal)
CPT/HCPCS: 73562